=== PATIENT | male | born 1955 | race Caucasian/White ===

== ENCOUNTER → 2017-10-14 | Outpatient (CLI) | payer BC ==
--- NOTE | 2017-10-15 00:42 | CTL ---
EXAMINATION TYPE: CT Low Dose Lung DATE OF EXAM ORDERED: 10/14/2017 HISTORY: 61-year-old male Personal history of tobacco use.. Lung cancer screening CT DLP: 118.[address] CTDI: 3.2 mGy Automated exposure control for dose reduction was used. SCREENING VISIT: Baseline COMPARISON: None TECHNIQUE: Low dose computed tomography scan was performed through the chest at 1 mm thick sections a nd reconstructed images in the coronal/sagittal plane at 1 mm thick sections. Additional coronal MIP reconstruction performed. CT DIAGNOSTIC QUALITY: Satisfactory FINDINGS: Heart is normal size without pericardial effusion. Mild coronary vessel calcifications are present. Aorta normal caliber with conventional arch vessel branching anatomy. Mild atherosclerotic arch calci fications. No thoracic lymphadenopathy. - 8 mm spiculated subpleural nodule anterior right upper lobe axial image 76. - Adjacent 5 mm pulmona ry nodule anteromedial right upper lobe on axial image 84. - 4 mm subpleural pulmonary nodule anterior right midlung, axial image 106. Moderate diffuse bronchial wall thickening. No consolidation or pleural effusion. Visualized upper abdomen shows no gross quality. Anterior endplate spondylosis midthoracic spine. No osseous destructive process. IMPRESSION: 1. LungRADS 4A - suspicious, 5-15% chance of malignancy. 3 nodules on the right measuring up to 8 mm . 2. COPD with moderate emphysema. RECOMMENDATION: 1. Three-month follow-up with low dose CT chest. 2. Smoking cessation. FOLLOW UP CT CHEST RECOMMENDATION: [address] LUNG RAD: Lung-Rad 4A Suspicious
== END | disposition home or self-care (01) ==
LOC: RADCTMAIN 16:08
PROVIDERS: ATTEND Family Medicine
DX: Z12.2 Encounter for screening for malignant neoplasm of respiratory organs (principal); J43.9 Emphysema, unspecified; Z87.891 Personal history of nicotine dependence

== ENCOUNTER → 2019-09-30 | Outpatient (CLI) | payer BC ==
--- NOTE | 2019-10-01 04:50 | MR ---
EXAMINATION TYPE: MR ankle RT wo con DATE OF EXAM: 09/30/2019 COMPARISON: None HISTORY: Right ankle pain/swelling Multiplanar multiecho imaging of the right ankle was performed without contrast. The Achilles tendon is intact. Plantar fascia appears intact. There is large ankle joint effusion. Th ere is abnormal increased signal on the T2 images on both sides of the subtalar joint. There is incre ased signal in the anterior talus. I see no fracture line. The medial and lateral flexor tendons of t he ankle are intact. The ankle mortise is anatomic. There is some hypertrophic spurring at the AC randal nt. The collateral ligaments appear intact. There is mild subcutaneous edema around the ankle. IMPRESSION: There is moderate edema in the talus and calcaneus consistent with extensive bone bruise. No fracture line seen. Large ankle joint effusion and consistent with synovitis. No evidence of ligament or tend on tear. 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
== END | disposition home or self-care (01) ==
LOC: RADMRIMAIN 18:33
PROVIDERS: ATTEND Podiatrist Foot & Ankle Surgery
DX: M19.071 Primary osteoarthritis, right ankle and foot (principal); M06.9 Rheumatoid arthritis, unspecified

== ENCOUNTER → 2020-11-19 | Outpatient (CLI) | payer SELFPAY ==
--- NOTE | 2020-11-19 13:27 | XR ---
EXAMINATION TYPE: XR ankle complete RT DATE OF EXAM: 11/19/2020 COMPARISON: NONE HISTORY: Pain FINDINGS: Three views of the ankle demonstrate the ankle mortise to be intact and symmetric. The joint spaces are preserved. The osseous structures are intact. There are moderate-sized calcaneal spurs. Correla te for pes planus deformity. IMPRESSION: 1. No definite acute fracture or dislocation, if symptoms persist follow-up study in 7 to 10 days wou ld be suggested. 2. Calcaneal spurs.
--- NOTE | 2020-11-19 13:29 | XR ---
EXAMINATION TYPE: XR hand complete bilateral DATE OF EXAM: 11/19/2020 COMPARISON: NONE HISTORY: Pain TECHNIQUE: Three views are submitted. FINDINGS: The osseous structures are intact. The joint spaces are preserved and there is no acute fracture or dislocation. Chronic deformity of the left fifth metacarpal. Metallic soft tissue attenuation in the second digit on the left just of chronic foreign body also noted on the prior exam. IMPRESSION: 1. No definite acute fracture or dislocation if symptoms persist, follow-up study in 7 to 10 days wo uld be suggested 2. Chronic foreign body soft tissues adjacent middle phalanx left second digit.
--- NOTE | 2020-11-19 13:30 | XR ---
EXAMINATION TYPE: XR knee complete bilateral DATE OF EXAM: 11/19/2020 COMPARISON: NONE HISTORY: Pain TECHNIQUE: Three views are submitted. FINDINGS: There is mild narrowing medial compartment knee joint and patellofemoral joint bilaterally. No erosiv e changes. Suspect artifact left lateral view of the knee anterior to the femur. Soft tissue calcific ation also in the differential diagnosis.. Osseous structures are intact. No acute fracture seen. IMPRESSION: 1. Mild arthropathy in a pattern more typical of osteoarthritis..
== END | disposition home or self-care (01) ==
LOC: RADXRMAIN 12:55
PROVIDERS: ATTEND Family Medicine
DX: M77.31 Calcaneal spur, right foot (principal); M77.32 Calcaneal spur, left foot; M17.0 Bilateral primary osteoarthritis of knee; M79.5 Residual foreign body in soft tissue

== ENCOUNTER → 2021-01-29 | Outpatient (CLI) | payer OTHER ==
--- NOTE | 2021-01-29 19:01 | CTL ---
EXAMINATION TYPE: CT Low Dose Lung DATE OF EXAM ORDERED: 01/29/2021 HISTORY: . Lung cancer screening CT DLP: 118.[address] CTDI: 3.3 mGy Automated exposure control for dose reduction was used. SCREENING VISIT: COMPARISON: 10/14/2017 TECHNIQUE: Low dose computed tomography scan was performed through the chest at 1 mm thick sections a nd reconstructed images in multiple planes at 1 mm and [address] DIAGNOSTIC QUALITY: Satisfactory FINDINGS: Heart is normal size without pericardial effusion. Mild coronary vessel calcifications are present. Aorta normal caliber with conventional arch vessel branching anatomy. Mild atherosclerotic arch calci fications. Diffuse emphysematous changes are seen. There is a new 3 mm apical lung nodule in the left 2 small to characterize. There is a 2 mm subpleural nodule right lung apex stable from prior exam. There is a 2 mm nodule axial image 64 within the posterior margin of bilateral upper lobes. There is a 4 mm nodule axial image 113 anterior segment right upper lobe new from prior exam which is stable. Previously noted 5 mm nodule in the medial anterior segment of the right upper lobe is not well-seen on today's exam. Previously noted 8 mm nodule noted within the anterior margin of the right upper lobe is not seen on today's exam. 2 mm subpleural nodule left upper lobe anterior segment image 101 is not seen with certainty on prior exam. Subsegmental changes seen posteriorly most typical of atelectasis. Peribronchial wall thickening pers ists. No sizable pleural effusion or pneumothorax. No evidence of focal pneumonia. No pleural calcifications. Atherosclerotic change aorta and coronary artery calcification. Heart size stable. No sizable pericardial effusion. Hypertrophic and degenerative change of the spine. Within t he mid thoracic spine is a rounded lucent lesion which is subcentimeter and nonspecific but retrospec tively stable and therefore benign. Possibly related to vertebral body hemangioma Visualized upper abdomen shows no gross quality. Anterior endplate spondylosis midthoracic spine. No osseous destructive process. IMPRESSION: 1. Diffuse emphysematous changes with peribronchial wall thickening which can be associated with bron chiectasis or chronic bronchitis. 2. There is interval improvement in the size of some of the previous nodules as well as development o f a couple new sub-5 mm nodules which are too small to characterize. CT LUNG RAD AND CT CHEST RECOMMENDATION: Lung-Rad 2 Benign Appearance or Behavior: Continue annual sc reening with LDCT in 12 months.
== END | disposition home or self-care (01) ==
LOC: RADCTMAIN 17:54
PROVIDERS: ATTEND Family Medicine
DX: Z12.2 Encounter for screening for malignant neoplasm of respiratory organs (principal); R91.8 Other nonspecific abnormal finding of lung field; J98.09 Other diseases of bronchus, not elsewhere classified; Z87.891 Personal history of nicotine dependence
CPT/HCPCS: 71271

== ENCOUNTER → 2022-01-30 | Outpatient (CLI) | payer MEDICARE, OTHER ==
--- NOTE | 2022-01-30 13:59 | CTL ---
EXAMINATION TYPE: CT Low Dose Lung DATE OF EXAM ORDERED: 01/30/2022 COMPARISON: 01/29/2021 HISTORY: . Low Dose CT Lung Screening CT DLP: [address] CTDI: 1.83 mGy IV CONTRAST USED: None. SCREENING VISIT: There COMPARISON: None. TECHNIQUE: Low dose computed tomography scan was performed through the chest at 1 millimeter thick se ctions and reconstructed images in the coronal plane at [address] DIAGNOSTIC QUALITY: Satisfactory FINDINGS: LUNG NODULES: A few scattered sub-5 mm pulmonary nodules are present and appear unchanged. No new nod ules seen. LUNGS: COPD: Severity: Mild Fibrosis: Severity:None Lymph nodes: None Other findings: None RIGHT PLEURAL SPACE: Effusion: None Calcification: None Thickening: None Pneumothorax: None LEFT PLEURAL SPACE: Effusion: None Calcification: None Thickening: None Pneumothorax: None HEART: Heart Size: Mildly enlarged Coronary calcification: Mild Pericardial effusion: None OTHER FINDINGS: Upper abdomen: No significant abnormality Bony thorax: Degenerative changes Supraclavicular region: No significant abnormalityOther: No significant abnormalityI IMPRESSION: Stable nodularity FOLLOW UP CT CHEST RECOMMENDATION: Follow-up screening in one year CT LUNG RAD: LUNG RAD CATEGORY 2 benign appearance of behavior
== END | disposition home or self-care (01) ==
LOC: RADCTMAIN 13:17
PROVIDERS: ATTEND Family Medicine
DX: Z12.2 Encounter for screening for malignant neoplasm of respiratory organs (principal); Z87.891 Personal history of nicotine dependence
CPT/HCPCS: 71271

== ENCOUNTER → 2022-05-26 | Outpatient (CLI) | payer MEDICARE, OTHER ==
--- NOTE | 2022-05-26 12:25 | XR ---
Exam: Left ankle 2 views Date: 05/26/2022 Comparison: Contralateral ankle 11/19/2020 Technique: 2 views of the left ankle were obtained per protocol. History: Left ankle trauma Findings: There is mild asymmetric soft tissue prominence over the medial malleolus. There is no acute fracture . There is no medial or lateral clear space widening. There is no dislocation. The talar dome is with in normal limits. There is a tiny plantar calcaneal spur. There are mild enthesopathic changes at the insertion of the Achilles tendon onto the posterior calcaneus. There are mild degenerative changes a t the talonavicular joint. There are minimal degenerative changes along the dorsal midfoot. There are no obvious suspicious erosive changes. Impression: No acute fracture or dislocation.
== END | disposition home or self-care (01) ==
LOC: RADXRMAIN 11:07
PROVIDERS: ATTEND Family Medicine
DX: S99.912A Unspecified injury of left ankle, initial encounter (principal); X58.XXXA Exposure to other specified factors, initial encounter

== ENCOUNTER → 2023-03-27 | Outpatient (CLI) | payer MEDICARE ==
--- NOTE | 2023-03-27 12:08 | CTL ---
EXAMINATION TYPE: CT Low Dose Lung DATE OF EXAM ORDERED: 03/27/2023 HISTORY: . Lung cancer screening CT DLP: [address] CTDI: 3.03 mGy Automated exposure control for dose reduction was used. SCREENING VISIT: Follow-up. COMPARISON: 01/30/2022. TECHNIQUE: Low dose computed tomography scan was performed through the chest at 1 mm thick sections a nd reconstructed images in multiple planes at 1 mm and [address] DIAGNOSTIC QUALITY: Satisfactory FINDINGS: LUNG NODULES: None. LUNGS: COPD: Severity: Mild diffuse emphysema. Fibrosis: Severity: None Lymph nodes: No adenopathy. Other findings: RIGHT PLEURAL SPACE: Effusion: None Calcification: None Thickening: None Pneumothorax: None LEFT PLEURAL SPACE: Effusion: None Calcification: None Thickening: None Pneumothorax: None HEART: Heart Size: Normal Coronary Calcification: Mild patchy coronary artery calcifications. Mild vascular calcification is al so seen within the thoracic aorta without evidence of aneurysmal dilation. Pericardial Effusion: None OTHER FINDINGS: Upper abdomen: None Bony thorax: None Supraclavicular region: None Other: None IMPRESSION: 1. Negative lung cancer screening examination for significant pulmonary nodules. 2. Mild smoking-related change. 3. Mild coronary artery calcifications. CT LUNG RAD AND CT CHEST RECOMMENDATION: Lung-Rad 1 Negative: Continue annual screening with LDCT in 12 months.
== END | disposition home or self-care (01) ==
LOC: RADCTMAIN 11:11
PROVIDERS: ATTEND Family Medicine
DX: Z12.2 Encounter for screening for malignant neoplasm of respiratory organs (principal); F17.210 Nicotine dependence, cigarettes, uncomplicated; I25.10 Atherosclerotic heart disease of native coronary artery without angina pectoris
CPT/HCPCS: 71271

== ENCOUNTER 2023-04-27 10:29 | Observation (INO) | payer MEDICARE ==
--- NOTE | 2023-04-27 10:56 | ED ---
General Adult HPI - General Chief complaint: Dizziness Stated complaint: Dizziness Time Seen by Provider: 04/27/23 10:30 Source: patient, EMS, RN notes reviewed, old records reviewed Mode of arrival: EMS Limitations: no limitations - History of Present Illness Initial comments: This is a 67-year-old male who presents to the emergency department stating that he has been diagnosed with a viral illness recently and this morning he got up out of his chair and the whole room started to spin around he was very dizzy and thought he was unable to walk because of the dizziness. Patient states this also made him very nauseous. Patient states anytime he sits up or tries to stand up he becomes extremely dizzy. Patient denies headache patient denies any numbness or weakness. Patient denies any recent fever chills. Patient denies any chest pain palpitations difficulty breathing shortness of breath. Patient denies any abdominal pain patient Nu[place] any vomiting diarrhea. Patient is any back pain. Patient Nuys any recent injury or trauma. Patient states sitting still and staring for without movement makes him feel much better. Patient denies any similar symptoms in the past. Patient denies any hearing loss or ringing in the ears that is new - Related Data Home Medications Medication Instructions Recorded Confirmed Amoxic-Pot Clav 875-125Mg 1 tab PO DIRECTED 04/27/23 04/27/23 [Augmentin 875-125] Etanercept [Enbrel Sureclick] 50 mg SQ MO 04/27/23 04/27/23 Fluticasone/Umeclidin/Vilanter 1 puff INHALATION RT-DAILY 04/27/23 04/27/23 [Trelegy Ellipta 200-62.5-25] Previous Rx's Medication Instructions Recorded Meclizine [Antivert] 25 mg PO TID #20 tab 04/27/23 Allergies Allergy/AdvReac Type Severity Reaction Status Date / Time No Known Allergies Allergy Verified 04/27/23 12:23 Review of Systems ROS Statement: Those systems with pertinent positive or pertinent negative responses have been documented in the HPI. ROS Other: All systems not noted in ROS Statement are negative. Past Medical History Additional Past Medical History / Comment(s): arthritis History of Any Multi-Drug Resistant Organisms: None Reported Past Surgical History: Back Surgery Past Psychological History: No Psychological Hx Reported Past Alcohol Use History: None Reported Past Drug Use History: None Reported General Exam - General Exam Comments Initial Comments: GENERAL: Patient is well-developed and well-nourished. Patient is nontoxic and well- hydrated and is in mild distress. ENT: Neck is soft and supple. No significant lymphadenopathy is noted. Oropharynx is clear. Moist mucous membranes. Neck has full range of motion without eliciting any pain. EYES: The sclera were anicteric and conjunctiva were pink and moist. Extraocular movements were intact and pupils were equal round and reactive to light. Eyelids were unremarkable. Patient has some nystagmus horizontally when looking to the right PULMONARY: Unlabored respirations. Good breath sounds bilaterally. No audible rales rhonchi or wheezing was noted. CARDIOVASCULAR: There is a regular rate and rhythm without any murmurs gallops or rubs. ABDOMEN: Soft and nontender with normal bowel sounds. SKIN: Skin is clear with no lesions or rashes and otherwise unremarkable. NEUROLOGIC: Patient is alert and oriented x3. Cranial nerves II through XII are grossly intact. Motor and sensory are also intact. Normal speech, volume and content. Symmetrical smile. Finger-nose testing is normal bilaterally MUSCULOSKELETAL: Normal extremities with adequate strength and full range of motion. No lower extremity swelling or edema. No calf tenderness. LYMPHATICS: No significant lymphadenopathy is noted PSYCHIATRIC: Normal psychiatric evaluation. Limitations: no limitations Course Vital Signs 04/27/23 04/27/23 04/27/23 10:33 12:32 12:41 Temperature 97.8 F Pulse Rate 86 72 73 Respiratory 18 Rate Blood Pressure 136/91 O2 Sat by Pulse 93 L Oximetry 04/27/23 13:11 Temperature Pulse Rate 83 Respiratory 20 Rate Blood Pressure 115/78 O2 Sat by Pulse 89 L Oximetry Medical Decision Making - Medical Decision Making EKG is interpreted by myself. EKG shows a sinus rhythm at 82 bpm parable 141 QRS 157 QT interval 373 QTc is 411. Patient's EKG shows a right bundle branch block Was pt. sent in by a medical professional or institution ([facility], [facility], urgent care, hospital, or long-term...) When possible be specific @ -No Did you speak to anyone other than the patient for history (EMS, parent, family, police, friend...)? What history was obtained from this source @ -No Did you review nursing and triage notes (agree or disagree)? Why? @ -I reviewed and agree with nursing and triage notes Were old charts reviewed (outside hosp., previous admission, EMS record, old EKG, old radiological studies, urgent care reports/EKG's, long-term records)? Report findings @ -No old charts were reviewed Differential Diagnosis (chest pain, altered mental status, abdominal pain women, abdominal pain men, vaginal bleeding, weakness, fever, dyspnea, syncope, headache, dizziness, GI bleed, back pain, seizure, CVA, palpatations, mental health, musculoskeletal)? @ -Differential Dizziness: Benign paroxysmal positional Vertigo, Menieres disease, otitis media, acoustic neuroma, vertebrobasilar insufficiency, cerebellar stroke, encephalitis, hypovolemic, arrhythmia, coronary artery syndrome, anemia, this is not meant to be an all-inclusive list EKG interpreted by me (3pts min.). @ -As above X-rays interpreted by me (1pt min.). @ -Chest x-ray shows no acute abnormality CT interpreted by me (1pt min.). @ -CT scan shows no acute abnormality U/S interpreted by me (1pt. min.). @ -None done What testing was considered but not performed or refused? (CT, X-rays, U/S, labs )? Why? @ -None What meds were considered but not given or refused? Why? @ -None Did you discuss the management of the patient with other professionals (professionals i.e. , PA, [employer], lab, RT, psych nurse, director of social work, planned giving officer, teacher, commissioned security officer, watch case polisher)? Give summary @ -No Was smoking cessation discussed for >3mins.? @ -No Was critical care preformed (if so, how long)? @ -No Were there social determinants of health that impacted care today? How? (Homelessness, low income, unemployed, alcoholism, drug addiction, transportation, low edu. Level, literacy, decrease access to med. care, custodial, rehab)? @ -No Was there de-escalation of care discussed even if they declined (Discuss DNR or withdrawal of care, Hospice)? DNR status @ -No What co-morbidities impacted this encounter? (DM, HTN, Smoking, COPD, CAD, Cancer, CVA, ARF, Chemo, Hep., AIDS, mental health diagnosis, sleep apnea, morbid obesity)? @ -None Was patient admitted / discharged? Hospital course, mention meds given and route, prescriptions, significant lab abnormalities, going to OR and other pertinent info. @ -Patient had an expiratory wheeze so patient received a breathing treatment and was feeling much better. Patient denied any difficulty breathing at any time in the emergency department. Patient was ambulated he still complained about being dizzy but he denies any shortness of breath or chest pain even t tasha his pulse ox dropped down to 85%. I gave the patient Solu-Medrol I also ordered a viral swab. I spoke with Dr. Fisher he agreed to admit the patient but the patient wrote admitting orders. Undiagnosed new problem with uncertain prognosis? @ -No Drug Therapy requiring intensive monitoring for toxicity (Heparin, Nitro, Insulin, Cardizem)? @ -No Were any procedures done? @ -No Diagnosis/symptom? @ -Vertigo Acute, or Chronic, or Acute on Chronic? @ -Acute Uncomplicated (without systemic symptoms) or Complicated (systemic symptoms)? @ -Complicated Side effects of treatment? @ -No Exacerbation, Progression, or Severe Exacerbation? @ -No Poses a threat to life or bodily function? How? (Chest pain, [place], [place], pneumonia, PE, COPD, DKA, ARF, appy, cholecystitis, CVA, Diverticulitis, Homicidal, Suicidal, threat to staff... and all critical care pts) @ -No Diagnosis/symptom? @ -COPD exacerbation Acute, or Chronic, or Acute on Chronic? @ -Acute Uncomplicated (without systemic symptoms) or Complicated (systemic symptoms)? @ -Complicated Side effects of treatment? @ -None Exacerbation, Progression, or Severe Exacerbation] @ -No Poses a threat to life or bodily function? @ -Yes this can lead to hypoxia and endorgan dysfunction - Lab Data Result diagrams: 04/27/23 10:48 04/27/23 10:48 Lab Results 04/27/23 04/27/23 04/27/23 Range/Units 10:48 10:48 10:48 WBC 8.4 (3.8-10.6) k/uL RBC 5.41 (4.30-5.90) m/uL Hgb 16.4 (13.0-17.5) gm/dL Hct 50.3 (39.0-53.0) % MCV 93.0 (80.0-100.0) fL MCH 30.4 (25.0-35.0) pg MCHC 32.7 (31.0-37.0) g/dL RDW 13.9 (11.5-15.5) % Plt Count 349 (150-450) k/uL MPV 9.0 Neutrophils % 69 % Lymphocytes % 17 % Monocytes % 8 % Eosinophils % 2 % Basophils % 1 % Neutrophils # 5.9 (1.3-7.7) k/uL Lymphocytes # 1.4 (1.0-4.8) k/uL Monocytes # 0.7 (0-1.0) k/uL Eosinophils # 0.2 (0-0.7) k/uL Basophils # 0.1 (0-0.2) k/uL Sodium 135 L (137-145) mmol/L Potassium 4.7 (3.5-5.1) mmol/L Chloride 107 (98-107) mmol/L Carbon Dioxide 19 L (22-30) mmol/L Anion Gap 9 mmol/L BUN 12 (9-20) mg/dL Creatinine 0.73 (0.66-1.25) mg/dL Est GFR (CKD-EPI)AfAm >90 (>60 ml/min/1.73 sqM) Est GFR (CKD-EPI)NonAf >90 (>60 ml/min/1.73 sqM) Glucose 141 H (74-99) mg/dL Calcium 9.2 (8.4-10.2) mg/dL Magnesium 1.9 (1.6-2.3) mg/dL Total Bilirubin 0.6 (0.2-1.3) mg/dL AST 24 (17-59) U/L ALT 14 (4-49) U/L Alkaline Phosphatase 95 (38-126) U/L Troponin I <0.012 (0.000-0.034) ng/mL Total Protein 7.9 (6.3-8.2) g/dL Albumin 3.5 (3.5-5.0) g/dL Disposition Clinical Impression: Vertigo, COPD exacerbation Disposition: ADMITTED IP TO THIS HOSP Prescriptions: Meclizine [Antivert] 25 mg PO TID #20 tab Is patient prescribed a controlled substance at d/c from ED?: No Referrals: Benji Fisher MD [Primary Care Provider] - 1-2 days Time of Disposition: 12:42
[2023-04-27 11:08] LABS: Basophils # (A) 0.1 k/uL (0-0.2); Basophils % (A) 1 %; Eosinophils # (A) 0.2 k/uL (0-0.7); Eosinophils % (A) 2 %; HCT 50.3 % (39.0-53.0); HGB 16.4 gm/dL (13.0-17.5); Lymphocytes # (A) 1.4 k/uL (1.0-4.8); Lymphocytes % (A) 17 %; MCH 30.4 pg (25.0-35.0); MCHC 32.7 g/dL (31.0-37.0); Monocytes # (A) 0.7 k/uL (0-1.0); Monocytes % (A) 8 %; Neutrophils # (A) 5.9 k/uL (1.3-7.7); Neutrophils % (A) 69 %; Platelet Count 349 k/uL (150-450); RBC 5.41 m/uL (4.30-5.90); RDW 13.9 % (11.5-15.5); WBC 8.4 k/uL (3.8-10.6)
--- NOTE | 2023-04-27 11:15 | XR ---
EXAMINATION TYPE: XR chest 2V DATE OF EXAM: 04/27/2023 11:04 AM CLINICAL INDICATION:Male, 67 years old with history of Chest Pain; [facility] COMPARISON: Chest radiograph 05/01/2010 TECHNIQUE: XR chest 2V Frontal and lateral views of the chest. FINDINGS: Lungs/Pleura: There is no evidence of pleural effusion, focal consolidation, or pneumothorax. Pulmonary vascularity: Thickening of interstitium suggest mild pulmonary venous congestion versus oth er Heart/mediastinum: Cardiomediastinal silhouette is unremarkable. Musculoskeletal: No acute osseous pathology. Other findings: None Lines/Tubes: IMPRESSION: Cannot exclude mild fibrosis versus pulmonary venous congestion versus other
[2023-04-27 11:19] LABS: ALT 14 U/L (4-49); AST 24 U/L (17-59); African American GFR (CKD) >90 (>60 ml/min/1.73 sqM); Albumin 3.5 g/dL (3.5-5.0); Alkaline Phosphatase 95 U/L (38-126); Anion Gap 9 mmol/L; Blood Urea Nitrogen 12 mg/dL (9-20); Calcium 9.2 mg/dL (8.4-10.2); Carbon Dioxide 19 mmol/L (22-30); Chloride 107 mmol/L (98-107); Glucose 141 mg/dL (74-99); Magnesium 1.9 mg/dL (1.6-2.3); Non-African American GFR(CKD) >90 (>60 ml/min/1.73 sqM); Potassium 4.7 mmol/L (3.5-5.1); Sodium 135 mmol/L (137-145); Total Bilirubin 0.6 mg/dL (0.2-1.3); Total Protein 7.9 g/dL (6.3-8.2)
[2023-04-27] MEDS: SODIUM CHLORIDE 0.9% 1,000 ML IV ONE (11:24)
[2023-04-27] MEDS: MECLIZINE 25 MG TAB PO STA (11:24)
[2023-04-27] MEDS: METOCLOPRAMIDE 5 MG/ML 2 ML VIAL IVP STA (11:26)
--- NOTE | 2023-04-27 11:57 | CT ---
EXAMINATION TYPE: CT brain wo con CT DLP: 1226.4 mGycm, Automated exposure control for dose reduction was used. DATE OF EXAM: 04/27/2023 11:19 AM COMPARISON: . CLINICAL INDICATION:Male, 67 years old with history of Altered mental status, Altered mental status, Dizziness TECHNIQUE: Brain: Axial CT images of the brain were obtained with coronal and sagittal reformats created and rev iewed. Contrast used: None. Oral contrast used: None. FINDINGS: Brain: Extra-axial spaces: No abnormal extra-axial fluid collections. Ventricular system: Within normal limits Cerebral parenchyma: No acute intraparenchymal hemorrhage or mass effect. The carney-white junction is well differentiated. Cerebellum: Unremarkable. Mass effect: No evidence of midline shift. Intracranial vasculature: unremarkable Soft tissues: Normal. Calvarium/osseous structures: No depressed skull fracture. Paranasal sinuses and mastoid air cells: Fluid in the right maxillary sinus Visualized orbits: Orbital contents are intact. IMPRESSION: No acute intracranial process. Right maxillary sinus disease.
[2023-04-27] MEDS: IPRATROPIUM-ALBUTEROL 3 ML NEB INHALATION STA (12:30)
[2023-04-27] MEDS ORDERED: NALOXONE 0.4 MG/ML 1 ML VIAL IVP PRN (13:19)
[2023-04-27] MEDS ORDERED: MECLIZINE 25 MG TAB PO PRN (13:20)
[2023-04-27] MEDS: methylPREDNISolone SOD SUCCI 125 MG/2 ML VIAL IV STA (13:20)
[2023-04-27] MEDS: AMOXIC-POT CLAV 875-125MG 1 EACH TAB PO SCH (14:09)
[2023-04-27] MEDS: IPRATROPIUM-ALBUTEROL 3 ML NEB INHALATION SCH (15:34)
[2023-04-27] MEDS: methylPREDNISolone SOD SUCCI 125 MG/2 ML VIAL IV SCH (17:35)
[2023-04-27] MEDS: AZITHROMYCIN 500 MG in SODIUM CHLORIDE 0.9% 250 ML IVPB SCH (20:46)
--- NOTE | 2023-04-27 23:36 | CT ---
EXAMINATION TYPE: CT chest wo con CT DLP: 486.3 mGycm, Automated exposure control for dose reduction was used. DATE OF EXAM: 04/27/2023 6:52 PM COMPARISON: 2 view chest x-ray 04/27/2023, CT low-dose lung 03/27/2023 . CLINICAL INDICATION:Male, 67 years old with history of dyspnea; PHH, URI x 2 weeks, cough and dyspnea TECHNIQUE: Multiple axial images were obtained through the chest. Sagittal and coronal reformats were created for review. Contrast used: mL of (None if empty) Oral contrast used: (None if empty) FINDINGS: Examination limited by lack of IV contrast. LUNGS/ PLEURA: Moderate bilateral pulmonary emphysematous changes are seen. There is diffuse chronic coarsening of interstitial lung markings. There is no definite fibrosis or honeycombing. No definite bronchiectasis. There is no evidence of acute groundglass infiltrate or airspace consolidation. There is some linear scarring or subsegmental atelectasis seen in the right middle lobe. Linear subsegment al atelectasis in the dependent lower lobes. No pleural effusion or pneumothorax. AIRWAY: Central airways are patent. LOWER NECK: No significant findings. MEDIASTINUM: No evidence of adenopathy. HEART: Mild cardiomegaly. Moderate coronary artery calcification and/or stents. No appreciable perica rdial effusion. Prominent pericardial fat. VASCULATURE: Moderate atherosclerotic calcifications of the aorta and branches. Ascending aorta is u p to about 3.3 CM, descending is 2.7 CM. Pulmonary trunk up to 2.6 CM. Pulmonary trunk is normal in size. Vessels otherwise not further assessed without contrast. SOFT TISSUES/LYMPH NODES: Unremarkable soft tissues. No axillary adenopathy. UPPER ABDOMEN: No significant findings. MUSCULOSKELETAL: No acute osseous abnormalities. Moderate disc degeneration changes are present throu ghout the thoracolumbar spine. IMPRESSION: 1. No acute abnormality in the chest. 2. Moderate bilateral pulmonary emphysema and chronic interstitial changes.
--- NOTE | 2023-04-28 05:16 | HP ---
HISTORY AND PHYSICAL HISTORY OF PRESENT ILLNESS: A 67-year-old white male with a viral illness recently. He is unable to get out of his chair the whole night with sinus pain. He became very dizzy, lightheaded. He was brought to the hospital. CT scan of his brain was negative. He denied any nausea, or vomiting. He is hypoxemic. We admitted him and placed him on oxygen and admitted for COPD exacerbation. I was covering him, he had severe shortness of breath worsening. HOME MEDICINES: He has been on, 1. Augmentin 875 b.i.d. 2. Enbrel for rheumatoid arthritis. 3. He is on a Trelegy inhaler daily. 4. Antivert for dizziness. ALLERGIES: No known allergies. REVIEW OF SYSTEMS: 14-point review of systems as mentioned above, otherwise negative. 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 SOCIAL HISTORY: He smoked for many years. Denies alcohol or drugs. PHYSICAL EXAMINATION: GENERAL: Well-nourished, well-developed, nontoxic, well hydrated. HEENT: Pupils equal, round, reactive. LUNGS: Scattered rhonchi and wheeze. HEART: S1, S2. NEUROLOGIC: Cranial nerves are intact. PSYCH: Fair mood and affect. LYMPHS: No lymphadenopathy. VITAL SIGNS: O2 was 89% in the ER on room air, temperature 97.8, pulse is 70s to 80s, blood pressure 138/91. CT scan of the brain was negative. Sodium was low at 135, potassium 4.7, white count 8.4, hemoglobin is 16.4, hematocrit 50.3. ASSESSMENT: Chronic obstructive pulmonary disease exacerbation, polycythemia secondary to chronic obstructive pulmonary disease, vertigo, rheumatoid arthritis, chronic dizziness, hyperglycemia. Troponins negative so far. EKG shows no ischemia. Mild hyponatremia secondary to dehydration. CT scan of the chest, echo, IV steroids, updrafts, IV antibiotics. Prognosis guarded. MMODL / IJN: [id number] /
[2023-04-28 15:28] VITALS: BP 131/52; RESP 18; TEMP 97.4
[2023-04-28 16:35] VITALS: PULSE 85
--- NOTE | 2023-04-28 17:21 | CA ---
Transthoracic Echo Report Name: Saúl Mata Age: 67 Gender: M : 1955 Exam Date: 04/28/2023 10:38 Exam Location: [facility] Ht (in): 67 Wt (lb): 217 Ordering Physician: Benji Fisher MD Attending/Referring Phys: Manager Acquisition Rosalinda Black RDCS Procedure CPT: Indications: dyspnea Cardiac Hx: Technical Quality: Technically difficult study Contrast 1: Definity Total Dose (mL): 2 Contrast 2: Total Dose (mL): MEASUREMENTS (Male / Female) Normal Values 2D ECHO LV Diastolic Diameter PLAX 4.5 cm 4.2 - 5.9 / 3.9 - 5.3 cm LV Systolic Diameter PLAX 2.8 cm IVS Diastolic Thickness 1.2 cm 0.6 - 1.0 / 0.6 - 0.9 cm LVPW Diastolic Thickness 1.2 cm 0.6 - 1.0 / 0.6 - 0.9 cm LV Relative Wall Thickness 0.5 RV Internal Dim ED PLAX 4.9 cm LA Volume 34.2 cm??? 18 - 58 / 22 - 52 cm??? LA Volume Index 15.6 cm???/m??? 16 - 28 cm???/m??? M-MODE Aortic Root Diameter MM 3.6 cm LA Systolic Diameter MM 4.1 cm LA Ao Ratio MM 1.1 AV Cusp Separation MM 2.3 cm DOPPLER AV Peak Velocity 193.3 cm/s AV Peak Gradient 15.0 mmHg AV Mean Velocity 117.4 cm/s AV Mean Gradient 6.7 mmHg AV Velocity Time Integral 32.2 cm LVOT Peak Velocity 126.0 cm/s LVOT Peak Gradient 6.4 mmHg LVOT Velocity Time Integral 26.3 cm MV Area PHT 2.8 cm??? Mitral E Point Velocity 94.2 cm/s Mitral A Point Velocity 69.5 cm/s Mitral E to A Ratio 1.4 MV Deceleration Time 275.7 ms MV E' Velocity 8.0 cm/s Mitral E to MV E' Ratio 11.7 TR Peak Velocity 263.7 cm/s TR Peak Gradient 27.8 mmHg Right Ventricular Systolic Press 32.8 mmHg FINDINGS Left Ventricle Mildly increased left ventricular wall thickness. Left ventricular cavity size normal. Normal left ventricular systolic function with no obvious regional wall motion abnormalities. Left ventricular ejection fraction is estimated at 55-60 %. Grade 1 diastolic dysfunction. Right Ventricle Right ventricular dilatation. Right ventricular systolic pressure within normal limits. Right Atrium Right atrium not well visualized. Left Atrium Left atrial size at the upper limits of normal. Mitral Valve Structurally normal mitral valve. No mitral stenosis, regurgitation or prolapse. Aortic Valve No aortic valve stenosis or regurgitation. Tricuspid Valve Structurally normal tricuspid valve. Mild tricuspid regurgitation. Pulmonic Valve Structurally normal pulmonic valve. Pericardium No pericardial effusion. Aorta Normal size aortic root and proximal ascending aorta. CONCLUSIONS Technically difficult study. Left ventricular ejection fraction is estimated at 55-60 %. Grade 1 diastolic dysfunction. Moderate Right ventricular dilatation. RVSP estimated at 33 mmHg No significant valvular dysfunction No pericardial effusion Previewed by: Dr Dl Welsh (Electronically Signed) Final Date: 28 April 2023 17:20
--- NOTE | 2023-05-03 16:09 | DS ---
DISCHARGE SUMMARY MEDICATIONS: 1. Enbrel 50 mg subcu once a month. 2. Antivert 25 t.i.d. 3. Augmentin 875 b.i.d. 4. Medrol Dosepak. 5. Trelegy inhaler. ASSESSMENT: Acute hypoxemic respiratory failure secondary to chronic obstructive pulmonary disease exacerbation and tracheobronchitis. Treated with IV steroids and IV antibiotics. Switch to oral in 1 to 2 days. He was sent home in stable condition. Follow up as an outpatient. Smoking cessation. Prognosis guarded. MMODL / IJN: [id number] /
--- NOTE | 2023-05-05 21:24 | P.CONS ---
History of Present Illness - Reason for Consult Consult date: 04/28/23 Sinusitis, Pneumonia Requesting physician: Benji Fisher - Chief Complaint Dizziness and cough x days - History of Present Illness Patient is a 67-year-old male with a past medical history sniffing for COPD chronic back pain presenting to the hospital for evaluation of dizziness patient mentioned that he woke up this morning get out of his chair and the whole room started to spin patient felt nauseated but did not throw up patient denies any headache denies any fever or any chills denies any chest pain complaining of some shortness of breath he did have a mild cough but not bring up any sputum with the symptoms the patient has been evaluated on presentation to the hospital the patient was afebrile and no fever have recorded subsequently patient was not tachycardic hypotensive or hypoxic he did have a white count of 8.4 creatinine 0.73 liver isms are normal influenza RSV COVID testing was negative patient did have a chest x-ray cannot exclude mild pulmonary fibrosis versus pulmonary venous congestion he did have a CT of the chest no acute abnormality in the chest moderate bilateral pulmonary has seen and chronic surgical changes infectious he was consulted regarding possible cellulitis and Required pneumonia Review of Systems Positive point and negatives has been mentioned in the HPI, complete review of systems was performed and all other systems are negative Past Medical History Past Medical History: COPD Additional Past Medical History / Comment(s): arthritis History of Any Multi-Drug Resistant Organisms: None Reported Past Surgical History: Back Surgery Past Anesthesia/Blood Transfusion Reactions: No Reported Reaction Past Psychological History: No Psychological Hx Reported Smoking Status: Former smoker Past Alcohol Use History: None Reported Past Drug Use History: None Reported Medications and Allergies Home Medications Medication Instructions Recorded Confirmed Type Etanercept [Enbrel Sureclick] 50 mg SQ MO 04/27/23 04/27/23 History Fluticasone/Umeclidin/Vilanter 1 puff INHALATION RT-DAILY 04/27/23 04/27/23 History [Treleangelica Ellipta 200-62.5-25] Meclizine [Antivert] 25 mg PO TID #20 tab 04/27/23 Rx Allergies Allergy/AdvReac Type Severity Reaction Status Date / Time No Known Allergies Allergy Verified 04/27/23 12:23 Physical Exam Vitals: Vital Signs Temp Pulse Pulse Resp BP BP Pulse Ox 04/28/23 09:19 71 04/28/23 09:05 72 94 L 04/28/23 07:00 97.7 F 59 L 17 112/51 97 04/28/23 02:00 98.6 F 77 119/56 94 L 04/27/23 20:00 97.4 F L 85 146/73 94 L 04/27/23 19:55 77 04/27/23 19:45 75 04/27/23 16:23 75 16 04/27/23 16:22 97.7 F 75 16 147/78 91 L 04/27/23 15:29 98.0 F 68 16 107/65 90 L 04/27/23 13:11 83 20 115/78 89 L 04/27/23 12:41 73 04/27/23 12:32 72 Intake and Output 04/27/23 04/28/23 04/28/23 22:59 06:59 14:59 Intake Total 328 Balance 328 Intake: Oral 328 Other: Voiding Method Toilet # Voids 1 3 Weight 98.43 kg GENERAL DESCRIPTION: Elderly male up in the chair, no distress. No tachypnea or accessory muscle of respiration use. HEENT: Shows Pallor , no scleral icterus. Oral mucous membrane is dry. No pharyngeal erythema or thrush NECK: Trachea central, no thyromegaly. LUNGS: Unlabored breathing. Clear to auscultation anteriorly. No wheeze or crackle. HEART: S1, S2, regular rate and rhythm. No loud murmur ABDOMEN: Soft, no tenderness , guarding or rigidity, no organomegaly EXTREMITIES: No edema of feet. SKIN: No rash, no masses palpable. NEUROLOGICAL: The patient is awake, alert, oriented x3, mood and affect normal. Results CBC & Chem 7: 04/27/23 10:48 04/27/23 10:48 Assessment and Plan (1) Vertigo Status: Acute Code(s): R42 - DIZZINESS AND GIDDINESS SNOMED Code(s): 227151661 Plan: 1patient presented to hospital with dizziness and vertigo did have some URI symptoms however no evidence of any sinus tenderness to be suspicious for sinusitis and the patient did have a negative chest x-ray and CT of the chest making pneumonia to be less likely possible viral illness 2-treatment should be symptomatic and no need for any systemic antibiotic therapy Thank you for this consultation Time with Patient: Greater than 30
== END 2023-04-28 18:10 | disposition home or self-care (01) ==
LOC: EC 10:29 → 6NMEDSUR 13:20
PROVIDERS: ADMIT Family Medicine; ATTEND Family Medicine
DX: J44.1 Chronic obstructive pulmonary disease with (acute) exacerbation (principal); D75.1 Secondary polycythemia; R42 Dizziness and giddiness; M06.9 Rheumatoid arthritis, unspecified; R73.9 Hyperglycemia, unspecified; E87.1 Hypo-osmolality and hyponatremia; E86.0 Dehydration; Z87.891 Personal history of nicotine dependence; Z79.51 Long term (current) use of inhaled steroids
CPT/HCPCS: 96376 ×2; 96365; 96366 ×2; 96367; 96361; 96375; 99285; 36415; 94640 ×4; 94760; 93005; 85379; 83880; 80053; 83735; 84484; 85025; 83036; 84145; 87636; 71046; 70450; 71250; G0378 ×2; C8929; J2765; J2930 ×2; J3360; J0456 ×2; J0696 ×2; Q9957; 93306

== ENCOUNTER → 2024-09-07 | Outpatient (CLI) | payer MEDICARE, OTHER ==
--- NOTE | 2024-09-07 11:04 | CTL ---
EXAMINATION TYPE: CT Low Dose Lung DATE OF EXAM ORDERED: 09/07/2024 COMPARISON: CT chest 04/27/2023, CT Low Dose Lung 03/27/2023, 01/30/2022, 01/29/2021, 10/14/2017 CLINICAL INDICATION: Male, 68 years old with history of Z12..2 ENCTR SCRN , F17.210; PHH, SMOKER, Jazmin g cancer screening, History of Smoking/tobacco use. TECHNIQUE: Low dose computed tomography scan was performed through the chest at 1 mm thick sections a nd reconstructed images in multiple planes at 1 mm and [address] DLP: [address] CTDI: 1.95 mGy Automated exposure control for dose reduction was used. CT DIAGNOSTIC QUALITY: Satisfactory FINDINGS: Nodules: No clinically significant pulmonary nodule. LUNGS: COPD: Severity: Mild Fibrosis: Severity: None Lymph nodes: None Other findings: None RIGHT PLEURAL SPACE: Effusion: None Calcification: None Thickening: None Pneumothorax: None LEFT PLEURAL SPACE: Effusion: None Calcification: None Thickening: None Pneumothorax: None HEART: Heart Size: Normal Coronary Calcification: Mild Pericardial Effusion: None OTHER FINDINGS: Upper abdomen: Atherosclerotic calcification of the aorta and its branches. Bony thorax: DISH of the thoracic spine. Supraclavicular region: None Other: None IMPRESSION: 1. No clinically significant pulmonary nodule. 2. Mild emphysematous changes. CT LUNG RAD AND CT CHEST RECOMMENDATION: Lung-Rad 1 Negative: Continue annual screening with LDCT in 12 months. S Modifier (other clinically significant findings): None [facility], , 09/07/2024 11:01 AM
== END | disposition home or self-care (01) ==
LOC: RADCTMAIN 08:09
PROVIDERS: ATTEND Family Medicine
DX: Z12.2 Encounter for screening for malignant neoplasm of respiratory organs (principal); F17.210 Nicotine dependence, cigarettes, uncomplicated; J43.9 Emphysema, unspecified
CPT/HCPCS: 71271